=== PATIENT | female | born 1940 | race Caucasian/White ===

== ENCOUNTER 2018-08-30 14:30 | Inpatient (IN) | payer MEDICARE ==
[~2018-08-30] VITALS: Ht 167.6 cm; Wt 122.5 kg
--- NOTE | 2018-08-30 16:45 | NUR ---
NOTIFIED DR. ANDERSEN REGARDING ADMISSION PER MD HE WILL SEE PT. FIRST.
--- NOTE | 2018-08-30 16:45 | NUR ---
RECEIVED FROM ASHKAN VIA WILL,PT ON O2, LETHARGIC BUT AROUSABLE,SON AT BEDSIDE ,CALL LIGHT AT REACH ,WILL CONTINUE TO MONITOR.
[2018-08-30 16:48] VITALS: BP 106/66
[2018-08-30 17:18] LABS: ABG BASE EXCESS 1.8 mmol/L; ABG OXYGEN SATURATION 97.1 % (92.0-98.5); ABG PCO2 58.8 mmHg (35.0-45.0); ABG PH 7.314 (7.350-7.450); ABG PO2 96.1 mmHg (75.0-100.0); AaDO2 92.4 mmHg; COHb 0.7 % (0.5-1.5); MetHb 0.3 % (0.0-1.5); O2Hb 96.1 % (94.0-97.0); SITE, ABG Right Radial; VENT MODE, BG Nasal Cannula
[2018-08-30] MEDS ORDERED: Z GUARD REMEDY 2 OZ OINT TP PRN (17:30)
[2018-08-30] MEDS ORDERED: ACETAMINOPHEN 325 MG TABLET PO PRN (17:30)
[2018-08-30] MEDS ORDERED: ZOLPIDEM TARTRATE 5 MG TABLET PO PRN (17:30)
[2018-08-30] MEDS ORDERED: HYDROCODONE/APAP 5/325MG 1 EACH TABLET PO PRN (17:30)
[2018-08-30] MEDS ORDERED: MAG HYDROX/AL HYDROX/SIMETH 30 ML UDC PO PRN (17:30)
[2018-08-30] MEDS ORDERED: MAGNESIUM HYDROXIDE 30 ML UDC PO PRN (17:30)
[2018-08-30] MEDS ORDERED: ONDANSETRON HCL/PF 4 MG/2 ML VIAL IVP PRN (17:30)
--- NOTE | 2018-08-30 17:36 | NUR ---
abg relayed to dr. ribera,will start bipap ,keep in zak r/t dnr/dni status.
[2018-08-30] MEDS: FUROSEMIDE 40 MG/4 ML VIAL IV SCH (18:13)
[2018-08-30] MEDS: methylPREDNISolone SOD SUCC 125 MG/2ML VIAL IV SCH (18:13)
[2018-08-30] MEDS: BLOOD SUGAR DIAGNOSTIC 1 EACH STRIP IN SCH ×2 (18:14→23:34)
--- NOTE | 2018-08-30 18:19 | NUR ---
pt. on bipap very lethargic unable to obtain history,will ff. up with family.
--- NOTE | 2018-08-30 18:20 | NUR ---
patient polst dnr/dni md aware.
--- NOTE | 2018-08-30 18:30 | NUR ---
RN NOTE PT [id number], A PIECE OF FRUIT CAME OUT WHILE ON BIPAP, PT WAS SITTING UP, MOUTH SUCTIONED AND CLEANED, DENTURE (UPPER) REMOVED. VS STABLE, O2 SATURATION 95%
[2018-08-30 18:37] LABS: BASOPHILS # (AUTO) 0.1 /CMM (0.0-0.2); BASOPHILS % (AUTO) 0.4 % (0.0-2.0); EOSINOPHILS % (AUTO) 1.6 % (0.0-6.0); HEMATOCRIT 35 % (33-45); HEMOGLOBIN 11.5 g/dL (11.5-14.8); LYMPHOCYTES # (AUTO) 1.9 /CMM (0.8-4.8); MEAN CORPUSCULAR HGB CONC 33 g/dl (31.0-36.0); MEAN CORPUSCULAR VOLUME 90 fL (82-100); MONOCYTES # (AUTO) 1.3 /CMM (0.1-1.30); MONOCYTES % (AUTO) 8.4 % (2.0-12.0); NEUTROPHILS # (AUTO) 11.5 /CMM (1.8-8.9); NEUTROPHILS % (AUTO) 76.6 % (43.0-81.0); PLATELET COUNT (AUTO) 217 /CMM (150-450); RED BLOOD CELL COUNT(AUTO) 3.87 MIL/uL (4.0-5.2)
--- NOTE | 2018-08-30 18:37 | NUR ---
RT PLACED PT ON BIPAP PER MD ORDER POST ABG. PLACED PT ON BIPAP. SETTINGS PER MD. PLACED MEPILEX FOR SKIN INTEGRITY. NO REDNESS NOTED. PT TOLERATING SETTINGS. WILL GET AN ABG POST 1HR PER MD.
[2018-08-30] MEDS: ENOXAPARIN SODIUM 40 MG/0.4 ML DISP.SYRIN SQ SCH (18:47)
[2018-08-30 18:52] LABS: CALCIUM, SERUM 9.5 mg/dL (8.5-10.1); CARBON DIOXIDE 30 mmol/L (21-32); CHLORIDE 96 mmol/L (98-107); CREATININE 0.9 mg/dL (0.6-1.3); GLUCOSE 270 mg/dL (74-106); POTASSIUM 4.6 mmol/L (3.5-5.1); SODIUM SERUM 132 mmol/L (136-145); UREA NITROGEN, BLOOD 22 mg/dL (7-18)
[2018-08-30 18:58] LABS: ALANINE AMINOTRANSFERASE 25 U/L (12-78); ALBUMIN 2.2 g/dL (3.4-5.0); ALKALINE PHOSPHATASE 106 U/L (46-116); ASPARTATE AMINOTRANSFERASE 16 U/L (15-37); BILIRUBIN,TOTAL 0.3 mg/dL (0.2-1.0); TOTAL PROTEIN, SERUM 6.4 g/dL (6.4-8.2)
[2018-08-30] MEDS: IPRATROPIUM NEB FS 0.5 MG/2.5 ML AMPUL.NEB NEB SCH ×2 (19:24→19:38)
[2018-08-30] MEDS: ALBUTEROL FS 2.5 MG/0.5 ML VIAL.NEB NEB SCH ×2 (19:24→19:38)
[2018-08-30 19:48] LABS: ABG BASE EXCESS 3.5 mmol/L; ABG OXYGEN SATURATION 96.4 % (92.0-98.5); ABG PCO2 60.7 mmHg (35.0-45.0); ABG PH 7.325 (7.350-7.450); AaDO2 127.4 mmHg; COHb 0.5 % (0.5-1.5); MetHb 0.4 % (0.0-1.5); O2Hb 95.5 % (94.0-97.0); SITE, ABG Right Radial
[2018-08-30 20:00] VITALS: BP 126/70
--- NOTE | 2018-08-30 20:00 | NUR ---
RN INITIAL NOTES RECEIVED THE PATIENT SLEEPING ON BED, LETHARGIC, AROUSABLE TO PAIN ONLY. CURRENTLY ON BIPAP WITH SETTINGS 20/5, RR14, FIO2 40%, SATURATING WELL, NO S/S OF RESP DISTRESS. SR ON THE MONITOR, HR 80'S. EL IS INTACT. LEFT HAND 20G FLUSHED AND PATENT, NO S/S OF INFILTRATION/INFECTION, DRESSING CDI. BED LOW AND LOCKED, SIDERAILS UP, BED ALARM ON FOR SAFETY. WILL MONITOR
--- NOTE | 2018-08-30 20:08 | NUR ---
RN NOTES NOTIFIED DR DAVIDSON ABOUT THE CRITICAL ABG RESULTS 1HR POST BIPAP. PER MD, BIPAP RATE TO BE CHANGED PER RT. NO OTHER NEW ORDERS
--- NOTE | 2018-08-30 23:50 | NUR ---
RN NOTES NOTIFIED DR DAVIDSON THAT PATIENT HAS CURRENT BLOOD SUGAR OF 353 BUT NO INSULIN ORDERS. PER MD, START PATIENT ON MODERATE SLIDING SCALE
[2018-08-31] VITALS: BP_SYST 108; BP_SYST 113; BP_SYST 118; BP_DIAS 46; BP_DIAS 50; BP_DIAS 54
[2018-08-31] MEDS: ALBUTEROL FS 2.5 MG/0.5 ML VIAL.NEB NEB SCH ×7 (00:03→23:51)
[2018-08-31] MEDS: IPRATROPIUM NEB FS 0.5 MG/2.5 ML AMPUL.NEB NEB SCH ×7 (00:03→23:51)
[2018-08-31] MEDS: INSULIN REGULAR, HUMAN 100 UNIT/ML 3 ML VIAL SQ PRN ×5 (00:13→23:36)
[2018-08-31] MEDS ORDERED: DEXTROSE 50%-WATER 50 ML DISP.SYRIN IV PRN (00:30)
[2018-08-31 04:00] VITALS: BP 123/49
[2018-08-31] MEDS: BLOOD SUGAR DIAGNOSTIC 1 EACH STRIP IN SCH ×4 (05:10→23:32)
[2018-08-31] MEDS ORDERED: BLOOD SUGAR DIAGNOSTIC 1 EACH STRIP IN SCH (06:00)
--- NOTE | 2018-08-31 06:10 | NUR ---
RN CLOSING NOTES PT REMAINS TO BE LETHARGIC BUT AROUSABLE. CURRENTLY STILL ON BIPAP, VSS. AM CARE PROVIDED. WILL ENDORSE AZIZA TO AM RN
[2018-08-31 06:33] LABS: BASOPHILS % (AUTO) 0.3 % (0.0-2.0); EOSINOPHILS % (AUTO) 0.4 % (0.0-6.0); HEMATOCRIT 37 % (33-45); HEMOGLOBIN 12.4 g/dL (11.5-14.8); LYMPHOCYTES # (AUTO) 0.8 /CMM (0.8-4.8); LYMPHOCYTES % (AUTO) 7.9 % (20.0-44.0); MEAN CORPUSCULAR HGB CONC 34 g/dl (31.0-36.0); MEAN CORPUSCULAR VOLUME 90 fL (82-100); MONOCYTES # (AUTO) 0.3 /CMM (0.1-1.30); MONOCYTES % (AUTO) 3.2 % (2.0-12.0); NEUTROPHILS # (AUTO) 8.6 /CMM (1.8-8.9); NEUTROPHILS % (AUTO) 88.2 % (43.0-81.0); PLATELET COUNT (AUTO) 215 /CMM (150-450); RED BLOOD CELL COUNT(AUTO) 4.08 MIL/uL (4.0-5.2); WHITE BLOOD COUNT (AUTO) 9.8 K/uL (4.3-11.0)
[2018-08-31 06:58] LABS: ALANINE AMINOTRANSFERASE 25 U/L (12-78); ALBUMIN 2.2 g/dL (3.4-5.0); ALKALINE PHOSPHATASE 113 U/L (46-116); ASPARTATE AMINOTRANSFERASE 18 U/L (15-37); BILIRUBIN,TOTAL 0.3 mg/dL (0.2-1.0); CALCIUM, SERUM 9.9 mg/dL (8.5-10.1); CARBON DIOXIDE 29 mmol/L (21-32); CHLORIDE 99 mmol/L (98-107); GLUCOSE 337 mg/dL (74-106); MAGNESIUM 1.8 mg/dL (1.8-2.4); PHOSPHORUS 3.7 mg/dL (2.5-4.9); POTASSIUM 4.7 mmol/L (3.5-5.1); SODIUM SERUM 137 mmol/L (136-145); TOTAL PROTEIN, SERUM 6.8 g/dL (6.4-8.2); UREA NITROGEN, BLOOD 26 mg/dL (7-18)
[2018-08-31 07:02] LABS: CHOLESTEROL 152 mg/dL (<200); LDL 96 mg/dL (0-99); TRIGLYCERIDES 144 mg/dL (30-150)
[2018-08-31 07:07] LABS: HDL CHOLESTEROL < 10 mg/dL (40-60)
--- NOTE | 2018-08-31 07:26 | NUR ---
FAIZA RN NOTE RECEIVED PATIENT IN BED ,STILL LETHARGIC AT THIS TIME ,ON BIPAP SETTING ORDERED ,SAT 97%, ON TELE MONITOR SR , WITH EL CATH TO GRAVITY WITH YELLOW COLOR URINE , LT HAND HL INTACT , BED IN LOWERS AND LOCKED POSITION , ON NPO STATUS AT THIS TIME , CALL LIGHT WITHIN REACH WILL CONT TO MONITOR CLOSELY, BED IN LOWEST AND LOCKED POSITION
[2018-08-31 08:00] VITALS: BP 111/56
[2018-08-31 08:03] LABS: BAND % (MANUAL) 7 % (0.0-5.0); LYMPHOCYTES % (MANUAL) 13 % (16-48); MONOCYTES % (MANUAL) 5 % (0-11.0); NEUTROPHILS % (MANUAL) 75 (42-76)
--- NOTE | 2018-08-31 08:06 | NUR ---
FAIZA RN NOTE PATIENT MORE AWAKE NOW AND UNDERSTANDS SIMPLE COMMAND,WILL F\U WITH RT TO DO ABG
[2018-08-31] MEDS: methylPREDNISolone SOD SUCC 125 MG/2ML VIAL IV SCH ×3 (08:14→16:47)
[2018-08-31] MEDS: FUROSEMIDE 40 MG/4 ML VIAL IV SCH (08:14)
[2018-08-31 09:05] LABS: ABG BASE EXCESS 6.8 mmol/L; ABG PO2 92.9 mmHg (75.0-100.0); AaDO2 123.3 mmHg; COHb 0.5 % (0.5-1.5); MetHb 0.5 % (0.0-1.5); SITE, ABG Right Radial; VENT MODE, BG ST 20/5 R16
--- NOTE | 2018-08-31 09:15 | NUR ---
PT TAKEN OFF BIPAP AND PLACE ON 2LNC PER DR FAN ACEVEDO ABG TO BE TAKEN IN 1 HR Addendum: 08/31/18 at 0931 by RIVKA BRANCH RT Amended: Links added.
--- NOTE | 2018-08-31 09:17 | NUR ---
FAIZA RN NOTE SEEN BY DR CHAVIRA WITH ORDER TO DO OFF BIPAP AND ABG IN 1 HOUR RT NOTIFIED, WILL F\U
--- NOTE | 2018-08-31 09:51 | NUR ---
FAIZA RN NOTE MRSA SWAB DONE ORDERED
--- NOTE | 2018-08-31 10:14 | NUR ---
FAIZA RN NOTE PT AT BEDSIDE, PATIENT ABLE TO MAKE FEW STEPS WITH WALKER ,SAT 92% ,WILL F\U
[2018-08-31 10:28] LABS: ABG OXYGEN SATURATION 94.6 % (92.0-98.5); ABG PCO2 51.4 mmHg (35.0-45.0); ABG PH 7.423 (7.350-7.450); ABG PO2 69.7 mmHg (75.0-100.0); AaDO2 69.3 mmHg; COHb 0.8 % (0.5-1.5); MetHb 0.4 % (0.0-1.5); O2Hb 93.5 % (94.0-97.0); SITE, ABG Right Radial; VENT MODE, BG nasal cannula
--- NOTE | 2018-08-31 10:34 | NUR ---
FAIZA GRAYSON NOTE ABG DONE BY RT ,KAREN CONT ON 2L NC, NO SOB NOTED, WILL F\U Addendum: 08/31/18 at 1040 by AROLDO MCKAY RN DR CHAVIRA AWARE OF ABG RESULT
[2018-08-31 12:00] VITALS: BP_SYST 111; BP_SYST 134; BP_DIAS 56; BP_DIAS 70
[2018-08-31] MEDS: CEFTRIAXONE 1 G in IV D5W 50 ML IV SCH (12:34)
[2018-08-31] MEDS: AZITHROMYCIN 500 MG in IV D5W 250 ML IV SCH (13:09)
[2018-08-31] MEDS: METFORMIN 500 MG TABLET PO SCH ×2 (15:00→18:10)
--- NOTE | 2018-08-31 15:00 | NUR ---
FAIZA RN NOTE FAMILY AT BEDSIDE, ALL NEEDS ATTENDED, NO SOB NOTED AT THIS TIME, WILL CONT TO MONITOR
[2018-08-31] MEDS: glipiZIDE 5 MG TABLET PO SCH (15:57)
[2018-08-31 16:00] VITALS: BP 137/65
--- NOTE | 2018-08-31 18:33 | NUR ---
FAIZA RN NOTE PATIENT IN BED ,SON AT BEDSIDE ,FEEDING PATIENT , ON PUREE DIET TOLERATED WELL ,WITH EL CATH TO GRAVITY , LT HAND HL INTACT ,NOT IN ACUTE DISTRESS,
[2018-08-31 20:00] VITALS: BP 126/61
[2018-08-31] MEDS: ENOXAPARIN SODIUM 40 MG/0.4 ML DISP.SYRIN SQ SCH (21:29)
[2018-09-01] VITALS (7 sets, daily range): BP systolic 108–126; BP diastolic 54–71
--- NOTE | 2018-09-01 00:55 | NUR ---
TD RN PT REMOVED BIPAP; EDUCATED TO PUT BACK ON. PT AGREED. CONTINUE TO MONITOR.
--- NOTE | 2018-09-01 02:00 | NUR ---
TD RN MULTIPLE ATTEMPTS FOR PT TO BE ON BIPAP; PT REPEATEDLY REMOVING AND SAYS NO THANK YOU. PLACED ON O2 3L NC. CONTINUE TO MONITOR.
[2018-09-01] MEDS: ALBUTEROL FS 2.5 MG/0.5 ML VIAL.NEB NEB SCH ×6 (03:45→23:41)
[2018-09-01] MEDS: IPRATROPIUM NEB FS 0.5 MG/2.5 ML AMPUL.NEB NEB SCH ×6 (03:45→23:41)
[2018-09-01] MEDS: BLOOD SUGAR DIAGNOSTIC 1 EACH STRIP IN SCH ×3 (05:52→17:01)
[2018-09-01] MEDS: INSULIN REGULAR, HUMAN 100 UNIT/ML 3 ML VIAL SQ PRN ×4 (06:00→23:14)
--- NOTE | 2018-09-01 06:22 | NUR ---
TD RN PT REMAINED ON O2 3L; NO RESP DISTRESS NOTED. PT REMAINS ALERT.
--- NOTE | 2018-09-01 06:47 | NUR ---
TD RN FOUND PT TRYING TO GET OUT OF BED STATING SHE NEEDED TO GO TO THE BATHROOM. PT REMOVED ARM BANDS AND PULLED OUT SALINE LOCK. REORIENTED PT TO SITUATION. PT APOLOGIZED AND AGREED TO STAY IN BED.
[2018-09-01] MEDS: glipiZIDE 5 MG TABLET PO SCH ×2 (07:44→16:51)
--- NOTE | 2018-09-01 07:50 | NUR ---
RN FAIZA: pt.is A/Ox2 now, but confused episodes, refused Bipap over night x3, can follow commands now, SR, SBP over 100, no any pain, O2sat. 92-94% now on 2L n/c, getting resp>Tx,
[2018-09-01] MEDS: methylPREDNISolone SOD SUCC 125 MG/2ML VIAL IV SCH ×2 (08:56→16:51)
[2018-09-01] MEDS: METFORMIN 500 MG TABLET PO SCH ×2 (08:57→16:51)
[2018-09-01] MEDS: FUROSEMIDE 40 MG/4 ML VIAL IV SCH (08:57)
--- NOTE | 2018-09-01 10:00 | NUR ---
RN FAIZA: is in room, updated with pt.current condition, VS, pt.refuses for Bipap over night, meds, I/O, said: d/c F/c on 09/02, will notify next nurse, ordered: continue Solu-medrol 40mg IV BID
[2018-09-01] MEDS: CEFTRIAXONE 1 G in IV D5W 50 ML IV SCH (12:04)
[2018-09-01] MEDS: AZITHROMYCIN 500 MG in IV D5W 250 ML IV SCH (12:04)
--- NOTE | 2018-09-01 13:30 | NUR ---
RN FAIZA: pt.is tolerated well for PT Tx
--- NOTE | 2018-09-01 17:25 | NUR ---
DAY CARE TEACHER: pt.is A/Ox3, no pain, no c/o, SR, SBP over 100, O2sat. over 94%, BG 297/covered with ISS
--- NOTE | 2018-09-01 20:00 | NUR ---
RN INITIAL NOTES RECEIVED PT RESTING IN BED, A&OX2 WITH CONFUSION. PT REPEATEDLY REMOVE NC. PT SR ON TELE MONITOR HR 82. EL IN PLACE, DRAINING TO GRAVITY. IV IN L HAND S/L. ALL NEEDS ANTICIPATED. ALL SAFETY PRECAUTION TAKEN, BED IN LOW AND LOCKED POSITION, CALL LIGHT WITHIN REACH. WILL CONT TO MONITOR.
[2018-09-01] MEDS: ENOXAPARIN SODIUM 40 MG/0.4 ML DISP.SYRIN SQ SCH (21:07)
[2018-09-02] VITALS (7 sets, daily range): BP systolic 126–145; BP diastolic 66–80
[2018-09-02] MEDS: ALBUTEROL FS 2.5 MG/0.5 ML VIAL.NEB NEB SCH ×6 (04:02→22:51)
[2018-09-02] MEDS: IPRATROPIUM NEB FS 0.5 MG/2.5 ML AMPUL.NEB NEB SCH ×6 (04:02→22:51)
--- NOTE | 2018-09-02 06:46 | NUR ---
RN CLOSING NOTES NO CHANGE IN PTS CONDITION OVER NIGHT. PT USED BIPAP ORDERED HS. WILL ENDORSE TO AM RN.
[2018-09-02] MEDS: BLOOD SUGAR DIAGNOSTIC 1 EACH STRIP IN SCH ×5 (06:54→21:30)
[2018-09-02] MEDS: glipiZIDE 5 MG TABLET PO SCH ×3 (07:30→15:41)
--- NOTE | 2018-09-02 07:30 | NUR ---
RN OPENING NOTES RECEIVED REPORT FROM EVP BUSINESS DEVELOPMENT RN. PT IS SLEEPING IN ROOM WITH BED IN SEMI FOWLERS POSITION AND ON 2 L O2 NC. PT IS A&O X 2. PT HAS A IV 20 GAUGE SALINE LOCKED IN LEFT HAND. BED IS LOWEST POSITION AND LOCKED. CALL LIGHT WITHIN REACH. WILL CONTINUE TO MONITOR. Addendum: 09/02/18 at 1914 by ANDRE PALAFOX RN IV IS IN RIGHT HAND
[2018-09-02] MEDS: METFORMIN 500 MG TABLET PO SCH ×3 (08:40→16:05)
[2018-09-02] MEDS: FUROSEMIDE 40 MG/4 ML VIAL IV SCH (08:40)
[2018-09-02] MEDS: methylPREDNISolone SOD SUCC 125 MG/2ML VIAL IV SCH ×2 (08:41→16:05)
--- NOTE | 2018-09-02 09:15 | NUR ---
RN NOTE: SPOKE WITH DR. ULLOA RE: THE PATIENT'S BLOOD SUGAR CHECK Q6HR. PER , OK TO CHANGE THE ORDER FOR BLOOD SUGAR CHECK TO [facility]S. ORDER, NOTED AND CARRIED OUT.
[2018-09-02] MEDS ORDERED: DEXTROSE 50%-WATER 50 ML DISP.SYRIN IV PRN (09:30)
--- NOTE | 2018-09-02 11:29 | NUR ---
ACID MIXER/MED RECON UNABLE TO OBTAIN INFO RE: HOME MEDICATION FROM THE PATIENT. CALLED [employer] (SON/CAREGIVER) AT [phone] WITH NO ANSWER AND UNABLE TO LEAVE A MSG. FROM [facility], NOTED, PATENT WITH NO HOME MEDICATION.
--- NOTE | 2018-09-02 12:10 | NUR ---
RN NOTE: RECEIVED A PHONE CALL FROM QUITA (SON) AND HE WAS GIVEN AN UPDATE REGARDING THE CONDITION OF THE PATIENT. HE WAS ALSO ASKED IF THE PATIENT WAS TAKING ANY MEDICATION FROM HOME AND ACCORDING TO HIM, THERE'S NO HOME MEDICATIONS FOR HIS MOTHER.
[2018-09-02] MEDS: INSULIN REGULAR, HUMAN 100 UNIT/ML 3 ML VIAL SQ PRN ×3 (12:24→21:31)
[2018-09-02] MEDS: CEFTRIAXONE 1 G in IV D5W 50 ML IV SCH (12:25)
[2018-09-02] MEDS: AZITHROMYCIN 250 MG TABLET PO SCH (12:25)
--- NOTE | 2018-09-02 19:12 | NUR ---
RN CLOSING NOTES GAVE REPORT TO ADMINISTRATIVE SERVICES OFFICER RN. PT IS AWAKE IN ROOM WITH BED IN SEMI FOWLERS POSITION AND ON 2 L O2 NC. PT IS A&O X 3. PT HAS A IV 20 GAUGE SALINE LOCKED IN RIGHT HAND. BED IS LOWEST POSITION AND LOCKED. CALL LIGHT WITHIN REACH. CONTINUITY OF CARE ENDORSED TO ADMINISTRATIVE SERVICES OFFICER RN.
--- NOTE | 2018-09-02 20:00 | NUR ---
RN INITIAL NOTES RECEIVED PT RESTING IN BED, A&OX2 WITH CONFUSION. PT SR ON TELE MONITOR HR 82. EL IN PLACE, DRAINING TO GRAVITY. IV IN L HAND S/L. ALL NEEDS ANTICIPATED. ALL SAFETY PRECAUTION TAKEN, BED IN LOW AND LOCKED POSITION, CALL LIGHT WITHIN REACH. WILL CONT TO MONITOR.
[2018-09-02] MEDS: ENOXAPARIN SODIUM 40 MG/0.4 ML DISP.SYRIN SQ SCH (21:29)
[2018-09-03] VITALS: BP 130/82
[2018-09-03 02:00] VITALS: BP 161/94
[2018-09-03] MEDS: ALBUTEROL FS 2.5 MG/0.5 ML VIAL.NEB NEB SCH ×4 (03:20→15:36)
[2018-09-03] MEDS: IPRATROPIUM NEB FS 0.5 MG/2.5 ML AMPUL.NEB NEB SCH ×4 (03:20→15:36)
[2018-09-03 04:00] VITALS: BP_SYST 128; BP_SYST 130; BP_DIAS 71; BP_DIAS 82
--- NOTE | 2018-09-03 06:37 | NUR ---
RN CLOSING NOTES PT RESTING IN BED, 2 L O2 NC. PT IS A&O X 1-2, PT HAS A IV 20 GAUGE SALINE LOCKED IN RIGHT HAND. BED IS IN LOWEST POSITION AND LOCKED. CALL LIGHT IS WITHIN REACH. WILL ENDORSED TO AM SHIFT RN.
[2018-09-03] MEDS: glipiZIDE 5 MG TABLET PO SCH ×2 (07:30→16:14)
[2018-09-03 08:00] VITALS: BP 125/69
--- NOTE | 2018-09-03 08:00 | NUR ---
FAIZA RN NOTE PATIENT IN BED ALERT, WITH AWAKE WITH SOME CONFUSION, ON 2L NC SAT98% ON TELE MONITOR SR , RT HAND HL INTACT, NO S\ S INFECTION NOTED , BED IN LOWEST AND LOCKED POSITION, WITH RT ,DOING BREATHING TX ORDERED, BREATHING UNLABORED, ABLE TO FEED SELF WITH ASSISTANCE, CALL LIGHT WITHIN REACH WILL CONT TO MONITOR CLOSELY
[2018-09-03] MEDS: methylPREDNISolone SOD SUCC 125 MG/2ML VIAL IV SCH ×2 (08:28→16:14)
[2018-09-03] MEDS: FUROSEMIDE 40 MG/4 ML VIAL IV SCH (08:29)
[2018-09-03] MEDS: BLOOD SUGAR DIAGNOSTIC 1 EACH STRIP IN SCH ×2 (08:32→12:57)
[2018-09-03] MEDS: METFORMIN 500 MG TABLET PO SCH ×2 (08:32→16:14)
--- NOTE | 2018-09-03 08:35 | NUR ---
FAIZA RN NOTE BLOOD SUGAR 79 MG\DL ,WILL HOLD GLIPIZIDE AND GLUCOPHAGE AT THIS TIME, WILL INFORM MD
--- NOTE | 2018-09-03 10:59 | NUR ---
FAIZA RN NOTE SEEN BY DR ANDERSEN OK TO DISCHARGE TO SNF, PER ORDER DR CHAVIRA CARD SETTER NOTIFIED TO ARRANGE [facility] FOR HOME .WILL F\U .DR ANDERSEN AWARE OF CHEST X RAY RESULT ,AWARE THAT PATIENT STILL COUGHING AND ALSO OK TO USE BIPAP MACHINE AT SNF
[2018-09-03] MEDS: CEFTRIAXONE 1 G in IV D5W 50 ML IV SCH (11:05)
[2018-09-03 12:00] VITALS: BP 132/75
[2018-09-03] MEDS: AZITHROMYCIN 250 MG TABLET PO SCH (12:51)
[2018-09-03] MEDS: INSULIN REGULAR, HUMAN 100 UNIT/ML 3 ML VIAL SQ PRN (12:55)
--- NOTE | 2018-09-03 12:57 | NUR ---
FAIZA RN NOTE CALLED TO SNF, REPORT GIVEN TO KENAN ROSE
--- NOTE | 2018-09-03 14:51 | NUR ---
FAIZA RN NOTE ALL NEEDS ATTENDED, NO SOB NOTED, KEEP CLEAN DRY, WILL CONT TO MONITOR CLOSELY
--- NOTE | 2018-09-03 15:30 | NUR ---
FAIZA RN NOTE SPOKE WITH CALENDER MACHINE OPERATOR RYANN NOTIFIED THAT [facility] VENT SETTING NEED TO BE ARRANGED ,WHEN PATIENT WILL BE HOME , STATED THAT ALREADY MADE ARRANGEMENT WITH FACILITY ABOUT THIS AND DR CHAVIRA AWARE OF IT ,WILL F\U
[2018-09-03 16:00] VITALS: BP 123/66
--- NOTE | 2018-09-03 16:15 | NUR ---
FAIZA GRAYSON NOTE CALLED [facility] AWARE THAT PATIENT WILL BE DISCHARGE TO SNF Addendum: 09/03/18 at 1635 by AROLDO MCKAY RN BREATHING TX DONE ORDERED WILL CONT TO MONITOR
--- NOTE | 2018-09-03 17:16 | NUR ---
FAIZA GRAYSON NOTE AMBULANCE ARRIVED REPORT GIVEN, TELE REMOVED, HL REMOVED, NO BLEEDING NOTED Addendum: 09/03/18 at 1721 by AROLDO MCKAY RN WENT TO SNF WITH STABLE CONDITION
== END 2018-09-03 17:40 | DRG 193 ==
LOC: TELE1 16:17 → TELE-TD 17:33
PROVIDERS: ADMIT Internal Medicine; ATTEND Internal Medicine
PROC: 5A09357 Assistance with Respiratory Ventilation, Less than 24 Consecutive Hours, Continuous Positive Airway Pressure (ICD-10-PCS; principal; 2018-08-30)
DX: J15.9 Unspecified bacterial pneumonia (principal); E43 Unspecified severe protein-calorie malnutrition; J96.22 Acute and chronic respiratory failure with hypercapnia; J96.21 Acute and chronic respiratory failure with hypoxia; G92 Toxic encephalopathy; N39.0 Urinary tract infection, site not specified; E66.2 Morbid (severe) obesity with alveolar hypoventilation; Z68.41 Body mass index [BMI] 40.0-44.9, adult; F03.90 Unspecified dementia, unspecified severity, without behavioral disturbance, psychotic disturbance, mood disturbance, and anxiety; Z66 Do not resuscitate; Z98.890 Other specified postprocedural states; E11.9 Type 2 diabetes mellitus without complications
CPT/HCPCS: 36415; 36600; 71045-TC; 80053-TC; 80061-TC; 82803-TC; 82962-TC; 83605-TC; 83735-TC; 84100-TC; 84443-TC; 84484-TC; 85025-TC; 93307-TC; 94660; 94799-TC; 97116-TC; 97530-TC; G0378; J0456; J0696; J1650; J1815; J1940; J2930; J7060